=== PATIENT | female | born 1965 | race Two or more races ===

== ENCOUNTER 2024-08-26 10:10 | Outpatient (CLI) | payer OTHER ==
[2024-08-26 11:02] LABS: BASOPHILS # (AUTO) 0.1 X10'3 (0-0.2); BASOPHILS % (AUTO) 0.6 % (0-1); EOSINOPHILS # (AUTO) 0.1 X10'3 (0-0.9); EOSINOPHILS % (AUTO) 1.3 % (0-6); HEMATOCRIT 43.6 % (35.0-45.0); HEMOGLOBIN 14.8 g/dl (12.0-16.0); LYMPHOCYTES # (AUTO) 2.8 X10'3 (1.1-4.8); LYMPHOCYTES % (AUTO) 30.5 % (21-51); MEAN CORPUSCULAR HEMOGLOBIN 30.2 PG (27.0-31.0); MEAN CORPUSCULAR VOLUME 88.9 FL (78-98); MEAN PLATELET VOLUME 9.3 FL (7.4-10.4); MONOCYTES # (AUTO) 0.7 X10'3 (0-0.9); MONOCYTES % (AUTO) 7.2 % (2-12); NEUTROPHILS # (AUTO) 5.6 X10'3 (1.8-7.7); NEUTROPHILS % (AUTO) 60.4 % (42-75); PLATELET COUNT 432 X10'3 (140-440); RED CELL DISTRIBUTION WIDTH 13.4 % (11.5-14.5); WHITE BLOOD COUNT 9.3 X10'3 (4.5-11.0)
[2024-08-26 11:39] LABS: ALANINE AMINOTRANSFERASE 43 U/L (12-78); ALBUMIN 4.2 G/DL (3.4-5.0); ALBUMIN/GLOBULIN RATIO 1.1 (1.1-1.5); ALKALINE PHOSPHATASE 77 IU/L (46-116); ASPARTATE AMINO TRANSFERASE 24 U/L (10-37); BILIRUBIN,DIRECT 0.1 MG/DL (0-0.3); BILIRUBIN,TOTAL 0.4 MG/DL (0.1-1.0); CHOL/HDL RATIO 5.2 (0.00-4.99); CHOLESTEROL 224 MG/DL (0-200); HDL CHOLESTEROL 43 MG/DL (35-60); LDL CHOLESTEROL 143 MG/DL (50-100); TRIGLYCERIDES 221 MG/DL (20-135)
== END 2024-08-26 23:59 | disposition home or self-care (01) ==
LOC: LAB 10:10
PROVIDERS: ATTEND Nurse Practitioner
DX: L20.89 Other atopic dermatitis (principal)
CPT/HCPCS: 36415; 80061; 80076; 85025

== ENCOUNTER 2024-12-01 08:42 | Emergency (ER) | payer OTHER ==
[~2024-12-01] VITALS: Ht 154.9 cm; Wt 87.5 kg
[2024-12-01 08:47] VITALS: BP 141/95; PULSE 85; TEMP 97.8; O2SAT 97
[2024-12-01 09:08] VITALS: RESP 16
--- NOTE | 2024-12-01 09:35 | RADIOLOGY REPORT ---
Procedure: DI WRIST, COMPLETE (3VW MIN) 12/01/2024 09:05 AM TECHNIQUE: DI WRIST, COMPLETE (3VW MIN) Indication: WRIST PAIN Comparison: None FINDINGS: Bones: No acute fracture or dislocation. Joint spaces are maintained. Soft tissues: Unremarkable. No radiopaque foreign body. IMPRESSION: 1. No acute osseous abnormality.
--- NOTE | 2024-12-01 10:17 | Physician Documentation ---
History of Present Illness ~ Chief Complaint: Wrist pain Stated Complaint: HAND PAIN Time Seen by MD: 08:52 Mode of Arrival: Ambulatory HPI Patient is seen today with complaints of right-sided wrist pain after date of injury five days ago last Sunday. The patient [place] hands outstretched in front of her. Patient states it has actually been feeling a little better since that time but has pain on the ulnar aspect of her right wrist with palpation of the ulnar styloid. Patient has no other concern or complaint at this time. Tetanus within 5 years: Yes Medication Reconciliation Allergies: Uncoded Allergies: SEAFOOD (Allergy, Severe, 12/01/24) Review of Systems Constitutional: Denies: chills, fever, weakness Eyes: Denies: pain, blurred vision ENT: Denies: ear pain, nose pain, throat pain, mouth pain Respiratory: Denies: cough, shortness of breath Cardiovascular: Denies: chest pain, palpitations Gastrointestinal: Denies: abdominal pain, nausea, vomiting Genitourinary: Denies: burning, dysuria Female Genitalia: Denies: vaginal discharge, pelvic pain Neurological: Denies: headache, dizziness Musculoskeletal: Denies: pain, swelling Integumentary: Denies: rash, lesions Allergic/Immunologic: Denies: hives, itching Hematologic/Lymphatic: Denies: no symptoms reported Psychiatric: Denies: depression, anxiety Physical Exam Vital Signs: Temperature: 97.8, Heart Rate: 85, Respiratory Rate: 16, BP: 141/95, Pulse Oximetry: 97, Weight: 87.550 Oxygen Flow Rate: 0 Physical Exam General: Awake and Alert, no acute distress. HEENT: Conjunctiva pink, Sclera clear, Mucus Membranes moist. Neck: Supple without masses and tenderness. Resp: Unlabored. Lungs clear to auscultation bilaterally. Heart: Regular Rate and rhythm, normal S1 and S2 without murmur, rub or gallop. Musculoskeletal: Patient on exam has significant tenderness to palpation on the ulnar aspect of patient's wrist in the area of the TFCC ligament as well as ulnar styloid laterally. Patient has good range of motion of the wrist in all planes of motion pronation and supination and flexion and extension and ulnar radial deviation. Patient is neurovascularly intact distally. Motor function is intact distally. I do not appreciate any significant swelling or erythema or sign of infection. Extremities: No cyanosis,clubbing or edema. Skin: Warm and Dry. Progress Results/Orders Results/Orders Vital Signs 12/01/24 12/01/24 08:47 09:08 Temp 97.8 Pulse 85 Resp 16 16 B/P (MAP) 141/95 Pulse Ox 97 O2 Flow Rate 0 EKG/XRAY/CT/US/VASC/MRI Bone/Soft Tissue X-Ray (Ext.) : Additional Comment X-ray of right wrist interpreted by myself today shows no sign of acute fracture, bones in anatomic alignment, no osteolytic or blastic lesions. DIAGNOSTIC RADIOLOGY Patient: VAMSHI JACQUES Medical Record: [id number] [facility] : 1965, Age: 58 Sex: Female Location: ER Patient Status: [facility] ER Service Date/Time: 12/01/24853 Ordering Physician: ALBERT RAMÍREZ MD Exam: WRIST, COMPLETE (3VW MIN) Procedure: DI WRIST, COMPLETE (3VW MIN) 12/01/2024 09:05 AM TECHNIQUE: DI WRIST, COMPLETE (3VW MIN) Indication: WRIST PAIN Comparison: None FINDINGS: Bones: No acute fracture or dislocation. Joint spaces are maintained. Soft tissues: Unremarkable. No radiopaque foreign body. IMPRESSION: 1. No acute osseous abnormality. Electronically Signed by:MOHIIN SALCEDO MD Date & Time: 12/01/24931 Dictated by: MOHINI SALCEDO MD Dictation date and time: 12/01/24931 Primary Care Provider: NO PRIMARY CARE PROVIDER cc: ALBERT RAMÍREZ MD ~ Medical Decision Making Findings Patient is seen today with complaints of right-sided wrist pain after date of injury five days ago last Sunday. The patient states he [place] the [place] with her hands outstretched in front of her. Patient states it has actually been feeling a little better since that time but has pain on the ulnar aspect of her right wrist with palpation of the ulnar styloid. Patient has no other concern or complaint at this time. X-rays taken of right wrist show no sign of acute fracture. Patient will be given wrist splint to be used when patient is out and about however when patient is in his safe environment she will come out of the wrist splint. Patient will follow up with primary care in 5-7 days if no better or as needed sooner for referral to youth career specialist. Patient will be given prescription for meloxicam 15 mg one tab once a day to be taken with food. Patient will take Tylenol at night as needed for symptomatic pain relief. Departure Disposition: HOME / SELF CARE / HOMELESS (ERASED) Impression: Primary Impression: Wrist joint pain Qualified Codes: M25.531 - Pain in right wrist Condition: Stable Discharge Instructions: Wrist Pain, Adult Additional Instructions: X-rays taken of right wrist show no sign of acute fracture. Patient will be given wrist splint to be used when patient is out and about however when patient is in his safe environment she will come out of the wrist splint. Patient will follow up with primary care in 5-7 days if no better or as needed sooner for referral to youth career specialist. Patient will be given prescription for meloxicam 15 mg one tab once a day to be taken with food. Patient will take Tylenol at night as needed for symptomatic pain relief. Referrals: NO PRIMARY CARE PROVIDER (PCP) Prescriptions Meloxicam (Meloxicam) 15 Mg Tablet 1 TAB PO DAILY for 30 Days, #30 TAB 0 Refills Prov: SWAPNA NEWOTN 12/01/24 Signature Scribe Signature: No scribe Attestation: No scribe SWAPNA NEWTON Dec 01, 2024 10:17
[2024-12-01] MEDS ORDERED: MELO-102 PO (10:28)
[2024-12-01] MEDS: acetaminophen 325mg tablet PO STA (10:33)
[2024-12-01] MEDS ORDERED: ALBU8HFA PO (10:45)
== END 2024-12-01 10:51 | disposition home or self-care (01) ==
LOC: ER 08:43
DX: M25.531 Pain in right wrist (principal); W01.0XXA Fall on same level from slipping, tripping and stumbling without subsequent striking against object, initial encounter; Y93.89 Activity, other specified; Y92.89 Other specified places as the place of occurrence of the external cause; Y99.8 Other external cause status
CPT/HCPCS: 29125; 73110; 99283; 99284